=== PATIENT | male | born 1975 | race Two or more races ===

== ENCOUNTER 2018-02-27 01:16 | Emergency (ER) | payer SELFPAY ==
[~2018-02-27] VITALS: Ht 167.6 cm; Wt 81.6 kg
[2018-02-27 01:48] VITALS: BP 135/89
[2018-02-27 01:53] LABS: BILIRUBIN,URINE NEGATIVE (NEG); CLARITY,URINE CLEAR; COLOR,URINE YELLOW; NITRITE,URINE NEGATIVE (NEG); PROTEIN,URINE NEGATIVE (NEG-TRACE); UROBILINOGEN,URINE 0.2 mg/dL (0.2 mg/dL)
[2018-02-27 01:58] LABS: BACTERIA,URINE FEW /HPF (0-FEW); RBC,URINE OCC /HPF (0-2); SQUAMOUS EPITHELIAL CELL,UR FEW /LPF
[2018-02-27] MEDS ORDERED: CEPH500C PO (02:12)
[2018-02-27] MEDS ORDERED: cefTRIAXone IM 250 MG VIAL IM ONE (02:15)
[2018-02-27] MEDS ORDERED: AZITHROMYCIN 250 MG TABLET. PO ONE (02:15)
--- NOTE | 2018-02-27 03:19 | PHYS DOC ---
Past Medical History Past Medical History: No Pertinent History Alcohol Use: Occasionally Drug Use: None Adult General Chief Complaint Chief Complaint: BLOOD IN URINE HPI HPI Patient is a 42 year old male presenting with dysuria. He feels that there is an irritation on the urethra on the inside and also noticed some pus when he urinated yesterday. No fever no abdominal pain no vomiting no diarrhea no back pain he did have similar symptoms 1 month ago but it went away on its own no testicular pain history was obtained with an scout leaser Review of Systems Review of Systems Constitutional: Denies fever or chills [] Eyes: Denies change in visual acuity, redness, or eye pain [] HENT: Denies nasal congestion or sore throat [] Respiratory: Denies cough or shortness of breath [] Cardiovascular: No additional information not addressed in HPI [] GI: Denies abdominal pain, nausea, vomiting, bloody stools or diarrhea [] Neurologic: Denies headache, focal weakness or sensory changes [] Endocrine: Denies polyuria or polydipsia [] All other systems were reviewed and found to be within normal limits, except as documented in this note. Current Medications Current Medications Current Medications Medications (Trade) Dose Ordered Sig/Brittani Start Time Stop Time Status Last Admin Dose Admin Azithromycin (Zithromax) 1,000 mg 1X ONCE 02/27/18 02:15 02/27/18 02:16 DC 02/27/18 02:22 1,000 MG Ceftriaxone Sodium (Rocephin Im) 250 mg 1X ONCE 02/27/18 02:15 02/27/18 02:16 DC 02/27/18 02:22 250 MG Allergies Allergies Allergies Coded Allergies Type Severity Reaction Last Updated Verified No Known Drug Allergies 02/27/18 No Physical Exam Physical Exam Constitutional: Well developed, well nourished, no acute distress, non-toxic appearance. [] HENT: Normocephalic, atraumatic, bilateral external ears normal, oropharynx moist, no oral exudates, nose normal. [] Eyes: PERRLA, EOMI, conjunctiva normal, no discharge. [] Abdomen: Bowel sounds normal, soft, no tenderness, no masses, no pulsatile masses. [] Skin: Warm, dry, no erythema, no rash. [] gu: There is a normal-appearing penis and scrotum and testicles by palpation and inspection Neurologic: Alert and oriented X 3, normal motor function, normal sensory function, no focal deficits noted. [] Psychologic: Affect normal, judgement normal, mood normal. [] Current Patient Data Vital Signs Vital Signs Date Time Temp Pulse Resp B/P (MAP) Pulse Ox O2 Delivery O2 Flow Rate FiO2 02/27/18 01:48 98.1 99 18 135/89 (104) 99 Room Air 98.1 Lab Values Laboratory Tests Test 02/27/18 01:30 Urine Collection Type Unknown Urine Color Yellow Urine Clarity Clear Urine pH 6.0 Urine Specific [place] 1.010 Urine Protein Negative mg/dL (NEG-TRACE) Urine Glucose (UA) Negative mg/dL (NEG) Urine Ketones (Stick) Negative mg/dL (NEG) Urine Blood Negative (NEG) Urine Nitrite Negative (NEG) Urine Bilirubin Negative (NEG) Urine Urobilinogen Dipstick 0.2 mg/dL (0.2 mg/dL) Urine Leukocyte Esterase Trace (NEG) Urine RBC Occ /HPF (0-2) Urine WBC 1-4 /HPF (0-4) Urine Squamous Epithelial Cells Few /LPF Urine Bacteria Few /HPF (0-FEW) Urine Mucus Slight /LPF EKG EKG [] Radiology/Procedures Radiology/Procedures [] Course & Med Decision Making Course & Med Decision Making Pertinent Labs and Imaging studies reviewed. (See chart for details) []42-year-old male with dysuria noted the UA borderline positive ceftriaxone and azithromycin were given in the emergency room GC chlamydia were ordered as well as a antibiotics cephalexin to go home with for possible urinary tract infection. Dragon Disclaimer Dragon Disclaimer This electronic medical record was generated, in whole or in part, using a voice recognition dictation system. Departure Departure Impression: Primary Impression: Dysuria Disposition: 01 HOME, SELF-CARE Condition: STABLE Patient Instructions: Dysuria-Brief Scripts Cephalexin (CEPHALEXIN) 500 Mg Capsule 1 CAP PO QID, #40 CAP Prov: PHILIP KIMBALL MD 02/27/18 PHILPI KIMBALL MD Feb 27, 2018 03:19
== END 2018-02-27 02:57 | disposition home or self-care (01) ==
LOC: ER 01:16
DX: R30.0 Dysuria (principal); N36.8 Other specified disorders of urethra
CPT/HCPCS: 81001; 87086; 87491; 87591; 96372; 99284; J0696; Q0144